=== PATIENT | female | born 1950 | race Caucasian/White ===

== ENCOUNTER 2016-07-11 08:44 | Outpatient (CLI) | payer OTHER ==
--- NOTE | 2016-07-11 10:33 | DIAGNOSTIC IMAGING REPORT ---
PROCEDURE: US ABDOMEN ULTRASOUND-LIMITED INDICATION: AUTOIMMUNE HEPATITIS TECHNIQUE: Santiago scale and color Doppler sonographic images of the abdomen were obtained without comparison. COMPARISON: None. FINDINGS: The liver is normal in size, contour, and echotexture. No mass or intrahepatic biliary dilatation. The gallbladder is normal without stones or sludge. The gallbladder is somewhat distended that measuring 8.7 x 6.1 x 3.5 cm. The wall is normal thickness measuring 1.7 mm No pericholecystic fluid or Lord sign. The extrahepatic common duct is normal measuring 6.3 mm The visualized pancreas is normal without ductal dilatation or peripancreatic fluid collection. The abdominal aorta is normal in its course and caliber. The retrohepatic inferior vena cava is patent. There is appropriate hepatopetal flow in the portal vein. The right kidney measures 12.2 cm in length. There is no perihepatic or perisplenic ascites. IMPRESSION: 1. Normal abdominal ultrasound.
== END 2016-07-11 23:00 ==
LOC: MAM SRH 08:44 → US SRH 09:00 → MAM SRH 23:00
DX: K75.4 Autoimmune hepatitis (principal)

== ENCOUNTER 2016-07-22 08:48 | Outpatient (CLI) | payer OTHER ==
--- NOTE | 2016-07-25 11:02 | DIAGNOSTIC IMAGING REPORT ---
PROCEDURE: MG BILATERAL SCREENING W/CAD INDICATION: SCREENING TECHNIQUE: Bilateral CC and MLO digital views. COMPARISON: Right mammogram and right breast ultrasound 11/24/2013, bilateral mammograms 11/15/2013 and 11/12/2012. FINDINGS: Computer-aided detection applied. Moderately dense. Scattered dystrophic calcifications. No change. IMPRESSION: 1. Negative mammogram RESULT CODE: 1- Negative. A. A negative report should not delay biopsy if a dominant or clinically suspicious mass is present. 10-15% of cancers are not identified by x-ray. B. A negative report may reinforce clinical impression. C. Adenosis and dense breasts may obscure an underlying neoplasm. D. False positive reports average 6-10%. E.. A yearly screening mammogram is recommended. A reminder letter will be scheduled.
== END 2016-07-22 23:00 ==
LOC: MAM SRH 08:48
DX: Z12.31 Encounter for screening mammogram for malignant neoplasm of breast (principal)